=== PATIENT | male | born 1955 | race Caucasian/White ===

== ENCOUNTER 2018-06-29 14:38 | Inpatient (IN) | payer OTHER ==
[2018-06-29 15:40] VITALS: BMI 20.6
[2018-06-29] MEDS ORDERED: MAGNESIUM HYDROX 2400MG/30ML ORAL SUSPENSION 30 ML CUP PO PRN (17:34)
[2018-06-29] MEDS ORDERED: P-EPHED 60MG/TRIPROLIDI 2.5MG TABLET PO PRN (17:34)
[2018-06-29] MEDS ORDERED: IBUPROFEN 400 MG TABLET (FP) PO PRN (17:34)
[2018-06-29] MEDS ORDERED: MAG HYDROX/AL HYDROX/SIMETH 30 ML UNIT-DOSE CUP PO PRN (17:34)
[2018-06-29] MEDS ORDERED: chlordiazePOXIDE HCL 25 MG CAPSULE PO PRN (17:34)
[2018-06-29] MEDS ORDERED: LOPERAMIDE HCL 2 MG CAPSULE PO PRN (17:34)
[2018-06-29] MEDS ORDERED: NICOTINE POLACRILEX 2 MG GUM BC PRN (17:34)
[2018-06-29] MEDS ORDERED: MENTHOL/PHENOL 1 EACH UD MM PRN (17:34)
[2018-06-29] MEDS ORDERED: MAGNESIUM CITRATE 300 ML BOTTLE PO PRN (17:34)
[2018-06-29] MEDS ORDERED: ACETAMINOPHEN 325 MG TABLET (FP) PO PRN (17:34)
[2018-06-29] MEDS ORDERED: guaiFENesin/D-METHORPHAN HB 10 ML UNIT-DOSE CUPS PO PRN (17:34)
--- NOTE | 2018-06-29 17:46 | HP ---
CIWA Score - CIWA Score Nausea/Vomitin-No Nausea/No Vomiting Muscle Tremors: 2 Anxiety: 3 Agitation: 3 Paroxysmal Sweats: 2 Orientation: 0-Oriented Tacttile Disturbances: 1-Very Mild Itch/Numbness Auditory Disturbances: 0-None Visual Disturbances: 1-Very Mild Sensitivity Headache: 0-None Present CIWA-Ar Total Score: 12 Admission ROS BHS - HPI Chief Complaint: alcohol withdrawal symptoms Allergies/Adverse Reactions: Allergies Allergy/AdvReac Type Severity Reaction Status Date / Time No Known Allergies Allergy Verified 06/29/18 17:32 History of Present Illness: 62 yo male with hx nicotine and chronic alcohol dependence is here seeking detox. Last detox [facility] June 2015. PMHX: leg fx, hx TBI, traumatic duffy as a child, seizure d/o, insomnia. Denies suicidal / homicidal ideation. Last seizure two years ago. Longest period of sobriety 12 years through AA meetings. Exam Limitations: No Limitations - Ebola screening Have you traveled outside of the country in the last 21 days: No Have you had contact with anyone from an Ebola affected area: No Have you been sick,other than usual withdrawal symptoms: No Do you have a fever: No - Review of Systems Constitutional: Chills, Changes in sleep EENT: reports: No Symptoms Reported Respiratory: reports: Cough Cardiac: reports: No Symptoms Reported GI: reports: Diarrhea, Poor Appetite, Poor Fluid Intake : reports: No Symptoms Reported Musculoskeletal: reports: No Symptoms Reported Integumentary: reports: No Symptoms Reported Neuro: reports: Tremors Endocrine: reports: Increased Thirst Hematology: reports: No Symptoms Reported Psychiatric: reports: Orientated x3, Anxious Other Systems: Reviewed and Negative Patient History - Patient Medical History Hx Anemia: No Hx Asthma: No Hx Chronic Obstructive Pulmonary Disease (COPD): No Hx Cancer: No Hx Cardiac Disorders: No Hx Congestive Heart Failure: No Hx Hypertension: No Hx Hypercholesterolemia: No Hx Pacemaker: No HX Cerebrovascular Accident: No Hx Seizures: Yes (seizure disorder last in 2015) Hx Dementia: No Hx Diabetes: No Hx Gastrointestinal Disorders: No Hx Liver Disease: No Hx Genitourinary Disorders: No Hx Sexually Transmitted Disorders: No Hx Renal Disease (ESRD): No Hx Thyroid Disease: No Hx Human Immunodeficiency Virus (HIV): No Hx Hepatitis C: No Hx Depression: No Hx Suicide Attempt: No Hx Bipolar Disorder: Yes (possible on Maria De Jesusa and Dustin as per pt for mental disorder ) Hx Schizophrenia: No - Patient Surgical History Hx Neurologic Surgery: No Hx Orthopedic Surgery: Yes (2001 fx. 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 Anesthesia Reaction: No - PPD History Previous Implant?: Yes Documented Results: Positive w/o proof Implanted On Prior [facility] Admission?: No Results: positive result - Smoking Cessation Smoking history: Current every day smoker Have you smoked in the past 12 months: Yes Aproximately how many cigarettes per day: 20 Hx Chewing Tobacco Use: No Initiated information on smoking cessation: Yes 'Breaking Loose' booklet given: 06/29/18 - Substance & Tx. History Hx Alcohol Use: Yes Hx Substance Use: Yes Substance Use Type: Alcohol Hx Substance Use Treatment: Yes ([facility] 2014) - Substances Abused Alcohol Route: Oral Frequency: Daily Amount used: 6pk beer and up Age of first use: 21 Date of Last Use: 06/28/18 Family Disease History - Family Disease History Family History: Denies Admission Physical Exam [facility] - Vital Signs Vital Signs: Vital Signs - 24 hr 06/29/18 15:36 Temperature 97.1 F L Pulse Rate 102 H Respiratory 19 Rate Blood Pressure 130/87 - Physical General Appearance: Yes: Disheveled, Mild Distress, Thin, Anxious, Other ( unkempt, not appropriatly dressed for weather wearing two coats ( warm weather outside)) HEENTM: Yes: EOMI, Hearing grossly Normal, Normal ENT Inspection, Normocephalic , Normal Voice, TERESA, Pharynx Normal, Tm's normal, Other (cheilithis, poor dentition) Respiratory: Yes: Chest Non-Tender, Lungs Clear, Normal Breath Sounds, No Respiratory Distress, No Accessory Muscle Use Neck: Yes: Within Normal Limits Breast: Yes: Breast Exam Deferred Cardiology: Yes: Regular Rhythm, Regular Rate Abdominal: Yes: Normal Bowel Sounds, Non Tender, Flat, Soft Genitourinary: Yes: Within Normal Limits Back: Yes: Normal Inspection Musculoskeletal: Yes: full range of Motion, Gait Steady, Pelvis Stable Extremities: Yes: Normal Capillary Refill, Normal Inspection, Normal Range of Motion Neurological: Yes: flosser II-XII NML intact, Fully Oriented, Alert, Motor Strength 5/5, Depressed Affect Integumentary: Yes: Normal Color, Dry, Warm Lymphatic: Yes: Within Normal Limits - Diagnostic (1) Alcohol dependence with uncomplicated withdrawal Current Visit: Yes Status: Chronic (2) Nicotine dependence Current Visit: Yes Status: Chronic Qualifiers: Nicotine product type: cigarettes (3) Seizure disorder Current Visit: Yes Status: Chronic Comment: on kepoppyra Cleared for Admission [facility] - Detox or Rehab [facility] Level of Care: Medically Managed Detox Regimen/Protocol: Librium S Breath Alcohol Content Breath Alcohol Content: 0.024 Urine Drug Screen - Results Drug Screen Negative: Yes
[2018-06-29] MEDS ORDERED: MELATONIN 5 MG TABLETS PO PRN (22:00)
[2018-06-29] MEDS: chlordiazePOXIDE HCL 25 MG CAPSULE PO SCH (22:27)
[2018-06-29] MEDS: THIAMINE HCL 100 MG TABLET (FP) PO SCH (22:27)
[2018-06-29 23:13] LABS: URINE APPEARANCE CLEAR; URINE BILIRUBIN NEGATIVE (<2.0 mg/dL); URINE COLOR AMBER; URINE GLUCOSE (UA) NEGATIVE (NEGATIVE); URINE KETONE NEGATIVE (NEGATIVE); URINE LEUK ESTERASE NEGATIVE (NEGATIVE); URINE NITRITE NEGATIVE (NEGATIVE); URINE PROTEIN NEGATIVE (NEGATIVE); URINE UROBILINOGEN NEGATIVE mg/dL (0.2-1.0)
[2018-06-30] MEDS: chlordiazePOXIDE HCL 25 MG CAPSULE PO SCH ×4 (07:00→22:16)
--- NOTE | 2018-06-30 07:38 | CONSULT ---
[facility] Psychiatric Consult - Data Date of interview: 06/30/18 Admission source: [facility] Identifying data: This is a 62 years old male, single, unemployed, living with family, on SSD, withy history of Bipolar Disorder, with no history of psychiatric hospitalizations, with histoe of chronic Alcohol and Nicotine dependence is reporting withdrawal symptoms and here seeking detox. Last detox [facility] June 2015. Substance Abuse History: - Smoking Cessation. Smoking history: Current every day smoker. Have you smoked in the past 12 months: Yes. Aproximately how many cigarettes per day: 20. Hx Chewing Tobacco Use: No. Initiated information on smoking cessation: Yes. 'Breaking Loose' booklet given: 06/29/18. - Substance & Tx. History. Hx Alcohol Use: Yes. Hx Substance Use: Yes. Substance Use Type : Alcohol. Hx Substance Use Treatment: Yes ([facility] 2014). - Substances Abused. Alcohol. Route: Oral. Frequency: Daily. Amount used: 6pk beer and up. Age of first use: 21. Date of Last Use: 06/28/18 Medical History: TBI history, Seizure history, Psychiatric History: Patient reports history of depression and [id number], as per computer history of Bipolar Disorder, reports no psychiatric hospitalization history, denioes suicidal, homicidal history. Prior to admission was taking: Trazodone 300mg po qhs Physical/Sexual Abuse/Trauma History: Denies Additional Comment: Trazodone 300mg po qhs Mental Status Exam - Mental Status Exam Alert and Oriented to: Person Cognitive Function: Fair Patient Appearance: Unkempt Mood: Sad Affect: Flat Patient Behavior: Cooperative Speech Pattern: Appropriate Voice Loudness: Mildly Soft/Quiet Thought Process: Goal Oriented Thought Disorder: Being Controlled Hallucinations: Denies Suicidal Ideation: Denies Homicidal Ideation: Denies Insight/Judgement: Fair Sleep: Difficulty falling asleep Appetite: Fair Muscle strength/Tone: Mild Hypotonicity Gait/Station: Shuffling Additional Comments: Trazodone 300mg po qhs Psychiatric Findings - Problem List ([place] 1, 2,3) (1) Alcohol-induced mood disorder Current Visit: Yes Status: Acute (2) Alcohol dependence with uncomplicated withdrawal Current Visit: Yes Status: Chronic (3) Nicotine dependence Current Visit: Yes Status: Chronic Qualifiers: Nicotine product type: cigarettes (4) Seizure disorder Current Visit: Yes Status: Chronic Comment: on keppra (5) Alcohol-induced sleep disorder Current Visit: No Status: Acute - Initial Treatment Plan Initial Treatment Plan: Trazodone 300mg po qhs
--- NOTE | 2018-06-30 08:58 | PN ---
[facility] CIWA - CIWA Score Nausea/Vomitin-Mild Nausea/No Vomiting Muscle Tremors: 4-Moderate,w/Arms Extend Anxiety: 4-Mod. Anxious/Guarded Agitation: 4-Moderately Restless Paroxysmal Sweats: 1-Minimal Palms Moist Orientation: 1-Uncertain about Date Tacttile Disturbances: 1-Very Mild Itch/Numbness Auditory Disturbances: 0-None Visual Disturbances: 0-None Headache: 1-Very Mild CIWA-Ar Total Score: 17 S Progress Note (SOAP) Subjective: reported head trauma 2010, complication of seizure, treated with keppra 1000 mg bid, last seizure 2015 due to cerebral hemorrhage, patient is doing well in [facility], resume [employer] called [id number] for medication verification, last visit 03/2018 one month supply of keppra 1000 mg bid trazadone 300 mg hs and neurontin 300 mg bid encourage the patient provide current name of pharmacy sweat tremor restlessness anxiety Objective: 06/30/18 09:52 Vital Signs Temperature 96.1 F L 06/30/18 07:52 Pulse Rate 63 06/30/18 07:52 Respiratory Rate 18 06/30/18 07:52 Blood Pressure 121/60 06/30/18 07:52 O2 Sat by Pulse Oximetry (%) Laboratory Last Values Urine Color Cristin 06/29/18 23:00 Urine Appearance Clear 06/29/18 23:00 Urine pH 5.0 (5.0-8.0) 06/29/18 23:00 Ur Specific [place] 1.019 (1.010-1.035) 06/29/18 23:00 Urine Protein Negative (NEGATIVE) 06/29/18 23:00 Urine Glucose (UA) Negative (NEGATIVE) 06/29/18 23:00 Urine Ketones Negative (NEGATIVE) 06/29/18 23:00 Urine Blood Negative (NEGATIVE) 06/29/18 23:00 Urine Nitrite Negative (NEGATIVE) 06/29/18 23:00 Urine Bilirubin Negative (<2.0 mg/dL) 06/29/18 23:00 Urine Urobilinogen Negative mg/dL (0.2-1.0) 06/29/18 23:00 Ur Leukocyte Esterase Negative (NEGATIVE) 06/29/18 23:00 lab noted Assessment: 06/30/18 09:53 withdrawal sx Plan: continue detox
[2018-06-30 10:04] LABS: HEMATOCRIT 40.8 % (35.4-49); HEMOGLOBIN 13.6 GM/dL (11.7-16.9); MCH 36.4 pg (25.7-33.7); MCHC 33.5 g/dl (32.0-35.9); MEAN CELL VOLUME 108.8 fl (80-96); MEAN PLT VOLUME 7.3 fl (7.5-11.1); PLATELET COUNT 155 K/MM3 (134-434); RBC 3.75 M/mm3 (4.00-5.60); RDW 14.6 % (11.9-15.9); WHITE BLOOD COUNT 3.7 K/mm3 (4.0-10.0)
[2018-06-30] MEDS: NICOTINE 21 MG/24 HOURS TOPICAL PATCH TD SCH (10:12)
[2018-06-30] MEDS: levETIRAcetam 500 MG TABLET (FP) PO SCH ×2 (10:12→22:15)
[2018-06-30] MEDS: PRENATAL VITAMINS W/ FOLIC ACID TABLET (FP) PO SCH (10:13)
[2018-06-30 10:32] LABS: ALBUMIN 2.7 g/dl (3.4-5.0); ALK PHOS 69 U/L (45-117); ANION GAP 7 MMOL/L (8-16); BILIRUBIN,TOTAL 1.2 mg/dL (0.2-1); BLOOD UREA NITROGEN 9 mg/dL (7-18); CALCIUM 8.8 mg/dL (8.5-10.1); CHLORIDE 106 mmol/L (98-107); CO2 27 mmol/L (21-32); CREATININE 0.7 mg/dL (0.55-1.3); GLUCOSE,RANDOM 77 mg/dL (74-106); POTASSIUM 3.8 mmol/L (3.5-5.1); SGOT/AST 56 U/L (15-37); SGPT/ALT 67 U/L (13-61); SODIUM 139 mmol/L (136-145); TOT PROT 6.2 g/dl (6.4-8.2)
--- NOTE | 2018-06-30 12:14 | EKG ---
Test Reason : Blood Pressure : / mmHG Vent. Rate : 082 BPM Atrial Rate : 082 BPM P-R Int : 136 ms QRS Dur : 070 ms QT Int : 372 ms P-R-T Axes : 070 072 071 degrees QTc Int : 434 ms NORMAL SINUS RHYTHM NORMAL ECG NO PREVIOUS ECGS AVAILABLE Confirmed by GELY CARBAJAL MD ([id number]) on 06/30/2018 12:13:52 PM Referred By: Confirmed By:GELY CARBAJAL MD
[2018-06-30] MEDS: GABAPENTIN 300 MG CAPSULE (FP) PO SCH ×2 (14:54→22:15)
[2018-06-30] MEDS: traZODone HCL 100 MG TABLET (FP) PO SCH (22:15)
[2018-06-30] MEDS: THIAMINE HCL 100 MG TABLET (FP) PO SCH (22:15)
[2018-07-01] MEDS: chlordiazePOXIDE HCL 25 MG CAPSULE PO SCH ×3 (06:05→17:46)
[2018-07-01] MEDS: levETIRAcetam 500 MG TABLET (FP) PO SCH ×2 (11:09→22:31)
[2018-07-01] MEDS: PRENATAL VITAMINS W/ FOLIC ACID TABLET (FP) PO SCH (11:09)
[2018-07-01] MEDS: GABAPENTIN 300 MG CAPSULE (FP) PO SCH ×2 (11:09→22:31)
[2018-07-01] MEDS: NICOTINE 21 MG/24 HOURS TOPICAL PATCH TD SCH (11:10)
--- NOTE | 2018-07-01 11:17 | PN ---
[facility] CIWA - CIWA Score Nausea/Vomitin-No Nausea/No Vomiting Muscle Tremors: 3 Anxiety: 3 Agitation: 4-Moderately Restless Paroxysmal Sweats: 3 Orientation: 0-Oriented Tacttile Disturbances: 0-None Auditory Disturbances: 0-None Visual Disturbances: 0-None Headache: 0-None Present CIWA-Ar Total Score: 13 BHS Progress Note (SOAP) Subjective: tired sweats body aches interrupted sleep Objective: 07/01/18 11:16 Vital Signs Temperature 98.1 F 07/01/18 10:10 Pulse Rate 105 H 07/01/18 10:10 Respiratory Rate 18 07/01/18 10:10 Blood Pressure 95/65 07/01/18 10:10 O2 Sat by Pulse Oximetry (%) Laboratory Tests 06/29/18 06/30/18 06/30/18 23:00 07:00 07:00 WBC 3.7 L RBC 3.75 L Hgb 13.6 Hct 40.8 MCV 108.8 H MCH 36.4 H MCHC 33.5 RDW 14.6 Plt Count 155 MPV 7.3 L Sodium 139 Potassium 3.8 Chloride 106 Carbon Dioxide 27 Anion Gap 7 L BUN 9 Creatinine 0.7 Creat Clearance w eGFR > 60 Random Glucose 77 Calcium 8.8 Total Bilirubin 1.2 H AST 56 H ALT 67 H Alkaline Phosphatase 69 Total Protein 6.2 L Albumin 2.7 L Urine Color Cristin Urine Appearance Clear Urine pH 5.0 Ur Specific [place] 1.019 Urine Protein Negative Urine Glucose (UA) Negative Urine Ketones Negative Urine Blood Negative Urine Nitrite Negative Urine Bilirubin Negative Urine Urobilinogen Negative Ur Leukocyte Esterase Negative RPR Titer 06/30/18 07:00 WBC RBC Hgb Hct MCV MCH MCHC RDW Plt Count MPV Sodium Potassium Chloride Carbon Dioxide Anion Gap BUN Creatinine Creat Clearance w eGFR Random Glucose Calcium Total Bilirubin AST ALT Alkaline Phosphatase Total Protein Albumin Urine Color Urine Appearance Urine pH Ur Specific [place] Urine Protein Urine Glucose (UA) Urine Ketones Urine Blood Urine Nitrite Urine Bilirubin Urine Urobilinogen Ur Leukocyte Esterase RPR Titer Nonreactive aaox3 ambulating no acute distress Assessment: 07/01/18 11:16 withdrawal sx Plan: continue detox increase fluids d/c tylenol
--- NOTE | 2018-07-01 16:02 | PN ---
S Progress Note Note: pt was admitted to go to [facility] for rehab on wednesday. Please allow pt to stay until then. His d/c is scheduled for Wednesday.
[2018-07-01] MEDS: THIAMINE HCL 100 MG TABLET (FP) PO SCH (22:31)
[2018-07-01] MEDS: chlordiazePOXIDE 5 MG CAPSULE PO SCH (22:32)
[2018-07-01] MEDS: traZODone HCL 100 MG TABLET (FP) PO SCH (22:32)
[2018-07-02] MEDS: chlordiazePOXIDE 5 MG CAPSULE PO SCH ×3 (06:30→18:03)
[2018-07-02] MEDS: NICOTINE 21 MG/24 HOURS TOPICAL PATCH TD SCH (12:48)
[2018-07-02] MEDS: GABAPENTIN 300 MG CAPSULE (FP) PO SCH ×2 (12:48→22:08)
[2018-07-02] MEDS: levETIRAcetam 500 MG TABLET (FP) PO SCH ×2 (12:48→22:07)
[2018-07-02] MEDS: PRENATAL VITAMINS W/ FOLIC ACID TABLET (FP) PO SCH (12:48)
--- NOTE | 2018-07-02 13:59 | PN ---
[facility] Progress Note Note: Vital Signs Temperature 98.1 F 07/02/18 10:38 Pulse Rate 54 L 07/02/18 10:38 Respiratory Rate 18 07/02/18 10:38 Blood Pressure 129/71 07/02/18 10:38 O2 Sat by Pulse Oximetry (%) Laboratory Last Values WBC 3.7 K/mm3 (4.0-10.0) L 06/30/18 07:00 RBC 3.75 M/mm3 (4.00-5.60) L 06/30/18 07:00 Hgb 13.6 GM/dL (11.7-16.9) 06/30/18 07:00 Hct 40.8 % (35.4-49) 06/30/18 07:00 MCV 108.8 fl (80-96) H 06/30/18 07:00 MCH 36.4 pg (25.7-33.7) H 06/30/18 07:00 MCHC 33.5 g/dl (32.0-35.9) 06/30/18 07:00 RDW 14.6 % (11.9-15.9) 06/30/18 07:00 Plt Count 155 K/MM3 (134-434) 06/30/18 07:00 MPV 7.3 fl (7.5-11.1) L 06/30/18 07:00 Sodium 139 mmol/L (136-145) 06/30/18 07:00 Potassium 3.8 mmol/L (3.5-5.1) 06/30/18 07:00 Chloride 106 mmol/L (98-107) 06/30/18 07:00 Carbon Dioxide 27 mmol/L (21-32) 06/30/18 07:00 Anion Gap 7 MMOL/L (8-16) L 06/30/18 07:00 BUN 9 mg/dL (7-18) 06/30/18 07:00 Creatinine 0.7 mg/dL (0.55-1.3) 06/30/18 07:00 Creat Clearance w eGFR > 60 (>60) 06/30/18 07:00 Random Glucose 77 mg/dL (74-106) 06/30/18 07:00 Calcium 8.8 mg/dL (8.5-10.1) 06/30/18 07:00 Total Bilirubin 1.2 mg/dL (0.2-1) H 06/30/18 07:00 AST 56 U/L (15-37) H 06/30/18 07:00 ALT 67 U/L (13-61) H 06/30/18 07:00 Alkaline Phosphatase 69 U/L (45-117) 06/30/18 07:00 Total Protein 6.2 g/dl (6.4-8.2) L 06/30/18 07:00 Albumin 2.7 g/dl (3.4-5.0) L 06/30/18 07:00 Urine Color Cristin 06/29/18 23:00 Urine Appearance Clear 06/29/18 23:00 Urine pH 5.0 (5.0-8.0) 06/29/18 23:00 Ur Specific [place] 1.019 (1.010-1.035) 06/29/18 23:00 Urine Protein Negative (NEGATIVE) 06/29/18 23:00 Urine Glucose (UA) Negative (NEGATIVE) 06/29/18 23:00 Urine Ketones Negative (NEGATIVE) 06/29/18 23:00 Urine Blood Negative (NEGATIVE) 06/29/18 23:00 Urine Nitrite Negative (NEGATIVE) 06/29/18 23:00 Urine Bilirubin Negative (<2.0 mg/dL) 06/29/18 23:00 Urine Urobilinogen Negative mg/dL (0.2-1.0) 06/29/18 23:00 Ur Leukocyte Esterase Negative (NEGATIVE) 06/29/18 23:00 RPR Titer Nonreactive (NONREACTIVE) 06/30/18 07:00 c/o flatulence, anxious ox3 no adventitious breath sounds full ROM ambulating in the unit withdrawal sx increase fluids continue detox continue to monitor
[2018-07-02] MEDS: chlordiazePOXIDE HCL 10 MG CAPSULE PO SCH (22:07)
[2018-07-02] MEDS: traZODone HCL 100 MG TABLET (FP) PO SCH (22:07)
[2018-07-02] MEDS: THIAMINE HCL 100 MG TABLET (FP) PO SCH (22:08)
[2018-07-03] MEDS: chlordiazePOXIDE HCL 10 MG CAPSULE PO SCH ×3 (07:08→18:02)
--- NOTE | 2018-07-03 09:19 | PN ---
[facility] Progress Note (SOAP) Subjective: feeling better less sweat no tremor no gi distress Objective: 07/03/18 15:00 Vital Signs Temperature 98.9 F 07/03/18 14:29 Pulse Rate 61 07/03/18 14:29 Respiratory Rate 20 07/03/18 14:29 Blood Pressure 119/69 07/03/18 14:29 O2 Sat by Pulse Oximetry (%) Laboratory Last Values WBC 3.7 K/mm3 (4.0-10.0) L 06/30/18 07:00 RBC 3.75 M/mm3 (4.00-5.60) L 06/30/18 07:00 Hgb 13.6 GM/dL (11.7-16.9) 06/30/18 07:00 Hct 40.8 % (35.4-49) 06/30/18 07:00 MCV 108.8 fl (80-96) H 06/30/18 07:00 MCH 36.4 pg (25.7-33.7) H 06/30/18 07:00 MCHC 33.5 g/dl (32.0-35.9) 06/30/18 07:00 RDW 14.6 % (11.9-15.9) 06/30/18 07:00 Plt Count 155 K/MM3 (134-434) 06/30/18 07:00 MPV 7.3 fl (7.5-11.1) L 06/30/18 07:00 Sodium 139 mmol/L (136-145) 06/30/18 07:00 Potassium 3.8 mmol/L (3.5-5.1) 06/30/18 07:00 Chloride 106 mmol/L (98-107) 06/30/18 07:00 Carbon Dioxide 27 mmol/L (21-32) 06/30/18 07:00 Anion Gap 7 MMOL/L (8-16) L 06/30/18 07:00 BUN 9 mg/dL (7-18) 06/30/18 07:00 Creatinine 0.7 mg/dL (0.55-1.3) 06/30/18 07:00 Creat Clearance w eGFR > 60 (>60) 06/30/18 07:00 Random Glucose 77 mg/dL (74-106) 06/30/18 07:00 Calcium 8.8 mg/dL (8.5-10.1) 06/30/18 07:00 Total Bilirubin 1.2 mg/dL (0.2-1) H 06/30/18 07:00 AST 56 U/L (15-37) H 06/30/18 07:00 ALT 67 U/L (13-61) H 06/30/18 07:00 Alkaline Phosphatase 69 U/L (45-117) 06/30/18 07:00 Total Protein 6.2 g/dl (6.4-8.2) L 06/30/18 07:00 Albumin 2.7 g/dl (3.4-5.0) L 06/30/18 07:00 Urine Color Cristin 06/29/18 23:00 Urine Appearance Clear 06/29/18 23:00 Urine pH 5.0 (5.0-8.0) 06/29/18 23:00 Ur Specific [place] 1.019 (1.010-1.035) 06/29/18 23:00 Urine Protein Negative (NEGATIVE) 06/29/18 23:00 Urine Glucose (UA) Negative (NEGATIVE) 06/29/18 23:00 Urine Ketones Negative (NEGATIVE) 06/29/18 23:00 Urine Blood Negative (NEGATIVE) 06/29/18 23:00 Urine Nitrite Negative (NEGATIVE) 06/29/18 23:00 Urine Bilirubin Negative (<2.0 mg/dL) 06/29/18 23:00 Urine Urobilinogen Negative mg/dL (0.2-1.0) 06/29/18 23:00 Ur Leukocyte Esterase Negative (NEGATIVE) 06/29/18 23:00 Levetiracetam None detected MCG/ML (10.0-40.0) 06/30/18 07:00 RPR Titer Nonreactive (NONREACTIVE) 06/30/18 07:00 lab noted Assessment: 07/03/18 15:01 mild withdrawal sx Plan: medically supervised detox
[2018-07-03] MEDS: GABAPENTIN 300 MG CAPSULE (FP) PO SCH ×2 (11:03→22:12)
[2018-07-03] MEDS: levETIRAcetam 500 MG TABLET (FP) PO SCH ×2 (11:03→22:12)
[2018-07-03] MEDS: PRENATAL VITAMINS W/ FOLIC ACID TABLET (FP) PO SCH (11:03)
[2018-07-03] MEDS: NICOTINE 21 MG/24 HOURS TOPICAL PATCH TD SCH (11:05)
[2018-07-03] MEDS: traZODone HCL 100 MG TABLET (FP) PO SCH (22:12)
[2018-07-03] MEDS: THIAMINE HCL 100 MG TABLET (FP) PO SCH (22:12)
--- NOTE | 2018-07-04 08:48 | DS ---
[facility] Detox Discharge Summary Admission Date: 06/29/18 Discharge Date: 07/04/18 - History Present History: Alcohol Dependence Additional Comments: 62 years old male admitted on 06/29/18 for alcohol withdrawal sx completed alcohol detox regiment tolerated well denies alcohol withdrawal sx alert oriented x 3 no acute distress aftercare [place] [facility] Physical Exam Results Vital Signs: Vital Signs Temperature 97.5 F L 07/04/18 06:00 Pulse Rate 61 07/04/18 06:00 Respiratory Rate 16 07/04/18 06:00 Blood Pressure 107/76 07/04/18 06:00 O2 Sat by Pulse Oximetry (%) Pertinent Admission Physical Exam Findings: alcohol withdrawal sx Vital Signs Temperature 96.3 F L 07/04/18 09:25 Pulse Rate 86 07/04/18 09:25 Respiratory Rate 18 07/04/18 09:25 Blood Pressure 112/77 07/04/18 09:25 O2 Sat by Pulse Oximetry (%) Laboratory Last Values WBC 3.7 K/mm3 (4.0-10.0) L 06/30/18 07:00 RBC 3.75 M/mm3 (4.00-5.60) L 06/30/18 07:00 Hgb 13.6 GM/dL (11.7-16.9) 06/30/18 07:00 Hct 40.8 % (35.4-49) 06/30/18 07:00 MCV 108.8 fl (80-96) H 06/30/18 07:00 MCH 36.4 pg (25.7-33.7) H 06/30/18 07:00 MCHC 33.5 g/dl (32.0-35.9) 06/30/18 07:00 RDW 14.6 % (11.9-15.9) 06/30/18 07:00 Plt Count 155 K/MM3 (134-434) 06/30/18 07:00 MPV 7.3 fl (7.5-11.1) L 06/30/18 07:00 Sodium 139 mmol/L (136-145) 06/30/18 07:00 Potassium 3.8 mmol/L (3.5-5.1) 06/30/18 07:00 Chloride 106 mmol/L (98-107) 06/30/18 07:00 Carbon Dioxide 27 mmol/L (21-32) 06/30/18 07:00 Anion Gap 7 MMOL/L (8-16) L 06/30/18 07:00 BUN 9 mg/dL (7-18) 06/30/18 07:00 Creatinine 0.7 mg/dL (0.55-1.3) 06/30/18 07:00 Creat Clearance w eGFR > 60 (>60) 06/30/18 07:00 Random Glucose 77 mg/dL (74-106) 06/30/18 07:00 Calcium 8.8 mg/dL (8.5-10.1) 06/30/18 07:00 Total Bilirubin 1.2 mg/dL (0.2-1) H 06/30/18 07:00 AST 56 U/L (15-37) H 06/30/18 07:00 ALT 67 U/L (13-61) H 06/30/18 07:00 Alkaline Phosphatase 69 U/L (45-117) 06/30/18 07:00 Total Protein 6.2 g/dl (6.4-8.2) L 06/30/18 07:00 Albumin 2.7 g/dl (3.4-5.0) L 06/30/18 07:00 Urine Color Cristin 06/29/18 23:00 Urine Appearance Clear 06/29/18 23:00 Urine pH 5.0 (5.0-8.0) 06/29/18 23:00 Ur Specific [place] 1.019 (1.010-1.035) 06/29/18 23:00 Urine Protein Negative (NEGATIVE) 06/29/18 23:00 Urine Glucose (UA) Negative (NEGATIVE) 06/29/18 23:00 Urine Ketones Negative (NEGATIVE) 06/29/18 23:00 Urine Blood Negative (NEGATIVE) 06/29/18 23:00 Urine Nitrite Negative (NEGATIVE) 06/29/18 23:00 Urine Bilirubin Negative (<2.0 mg/dL) 06/29/18 23:00 Urine Urobilinogen Negative mg/dL (0.2-1.0) 06/29/18 23:00 Ur Leukocyte Esterase Negative (NEGATIVE) 06/29/18 23:00 Levetiracetam None detected MCG/ML (10.0-40.0) 06/30/18 07:00 RPR Titer Nonreactive (NONREACTIVE) 06/30/18 07:00 lab noted - Treatment Hospital Course: Detox Protocol Followed, Detoxed Safely, Responded well, Discharged Condition Good, Rehab Referral Accepted Patient has Accepted a Rehab Referral to: [facility] - Medication Discharge Medications: Ambulatory Orders Pregabalin [Lyrica -] 300 mg PO BID 06/30/15 Trazodone HCl 300 mg PO HS #30 tablet 06/30/18 Gabapentin [Neurontin] 300 mg PO BID #60 capsule 07/03/18 levETIRAcetam [Keppra -] 1,000 mg PO BID #60 tablet 07/03/18 - Diagnosis (1) Alcohol-induced mood disorder Current Visit: Yes Status: Suspected (2) Alcohol dependence with uncomplicated withdrawal Current Visit: Yes Status: Acute (3) Nicotine dependence Current Visit: Yes Status: Acute Qualifiers: Nicotine product type: cigarettes Substance use status: in withdrawal Qualified Code(s): F17.213 - Nicotine dependence, cigarettes, with withdrawal (4) Seizure disorder Current Visit: Yes Status: Chronic - AMA Did Patient Leave Against Medical Advice: No
[2018-07-04] MEDS: PRENATAL VITAMINS W/ FOLIC ACID TABLET (FP) PO SCH (10:06)
[2018-07-04] MEDS: levETIRAcetam 500 MG TABLET (FP) PO SCH (10:06)
[2018-07-04] MEDS: GABAPENTIN 300 MG CAPSULE (FP) PO SCH (10:06)
[2018-07-04] MEDS: NICOTINE 21 MG/24 HOURS TOPICAL PATCH TD SCH (10:08)
[2018-07-04 13:35] VITALS: BP 90/58; PULSE 84; TEMP 97.9
== END 2018-07-04 13:54 | disposition home or self-care (01) | DRG 775 ==
LOC: YASAS 14:38 → Y6N 18:36
PROC: HZ2ZZZZ Detoxification Services for Substance Abuse Treatment (ICD-10-PCS; principal; 2018-06-29)
DX: F10.230 Alcohol dependence with withdrawal, uncomplicated (principal); F10.24 Alcohol dependence with alcohol-induced mood disorder; F10.282 Alcohol dependence with alcohol-induced sleep disorder; F17.213 Nicotine dependence, cigarettes, with withdrawal; G40.909 Epilepsy, unspecified, not intractable, without status epilepticus
CPT/HCPCS: 36415; 71046-TC-FY; 80053; 80177; 81003; 85027; 86593; 93005; 93010